=== PATIENT | male | born 1965 | race Caucasian/White ===

== ENCOUNTER 2020-04-30 11:22 | Outpatient (REF) | payer OTHER, SELFPAY | END 2020-04-30 11:23 | disposition home or self-care (01) | LOC: HO.LAB 11:22 | PROVIDERS: Visit Provider Internal Medicine | DX: Z20.828 Contact with and (suspected) exposure to other viral communicable diseases (principal) | CPT/HCPCS: C9803; U0003 ==

== ENCOUNTER 2020-06-04 08:09 | Outpatient (REF) | payer OTHER, SELFPAY | END 2020-06-04 08:10 | disposition home or self-care (01) | LOC: HO.LAB 08:09 | PROVIDERS: Visit Provider Internal Medicine | DX: Z20.822 Contact with and (suspected) exposure to COVID-19 (principal) | CPT/HCPCS: 36415; C9803; U0003 ==

== ENCOUNTER 2021-05-21 07:52 | Outpatient (REF) | payer SELFPAY ==
[2021-05-21 11:05] LABS: Binax Internal Control QC Valid; Binax Lot number: 9864; Binax Now Covid-19 Ag Negative (Negative)
== END 2021-05-21 07:53 | disposition home or self-care (01) ==
LOC: HO.LAB 07:52
PROVIDERS: Visit Provider Internal Medicine
DX: Z20.822 Contact with and (suspected) exposure to COVID-19 (principal)
CPT/HCPCS: C9803